=== PATIENT | male | born 1950 | race Asian ===

== ENCOUNTER 2019-06-15 13:00 | Emergency (ER) | payer MEDICARE, OTHER ==
[~2019-06-15] VITALS: Ht 157.5 cm; Wt 64.0 kg
[2019-06-15 13:58] LABS: BASOPHILS % 0.5 % (0.0-2.0); EOSINOPHILS % 0.3 % (0.0-5.0); HEMATOCRIT. 43.6 % (42.0-52.0); HEMOGLOBIN. 13.9 g/dL (14.0-18.0); LYMPHOCYTES % 15.2 % (20.0-50.0); MEAN CORPUSCULAR HEMOGLOBIN 20.9 pg (28.0-32.0); MEAN CORPUSCULAR VOLUME 65.5 fL (80.0-94.0); MEAN PLATELET VOLUME 8.6 fl (7.4-10.4); PLATELET 255 x1000/uL (130-400); RED BLOOD CELL COUNT 6.66 mill/uL (4.7-6.1); RED CELL DISTRIBUTION WIDTH 15.3 % (11.6-14.6)
[2019-06-15 14:05] LABS: CHLORIDE 107 mEq/L (98-107)
[2019-06-15 14:14] LABS: CREATINE KINASE 126 IU/L (39-308)
[2019-06-15 14:16] LABS: CREATINE KINASE MB FRACTION 2.1 ng/mL (0.5-3.6)
[2019-06-15] MEDS ORDERED: METHOCARBAMOL 750MG TABLET PO NR (14:36)
[2019-06-15] MEDS ORDERED: KETOROLAC 15MG/ML VIAL IV NR (14:45)
[2019-06-15] MEDS: SODIUM CHLORIDE 0.9% 1,000 ML IV NR ×2 (14:59→16:12)
[2019-06-15] MEDS ORDERED: METHOCARBAMOL 500MG TABLET PO NR (15:00)
[2019-06-15 15:16] LABS: PLATELET ESTIMATE NORMAL
[2019-06-15 17:18] VITALS: BP 129/58
[2019-06-15 18:04] LABS: T4 FREE 0.93 ng/dL (0.76-1.46)
== END 2019-06-15 17:22 | disposition home or self-care (01) ==
LOC: ER 13:00
DX: R25.2 Cramp and spasm (principal); E86.0 Dehydration; M10.9 Gout, unspecified; E11.9 Type 2 diabetes mellitus without complications; I10 Essential (primary) hypertension; E03.9 Hypothyroidism, unspecified
CPT/HCPCS: 36415; 71045; 80053; 82550; 82553; 83735; 83880; 84439; 84443; 84484; 85025; 93005; 96374; 99284; J1885